=== PATIENT | male | born 1955 | race Caucasian/White ===

== ENCOUNTER → 2017-03-22 | Outpatient (CLI) | payer OTHER ==
--- NOTE | 2017-03-22 17:33 | RADRPT ---
EXAM DATE/TIME: 03/22/2017 16:39 [place] COMPARISON: No previous studies available for comparison. INDICATIONS : Pain. MEDICAL HISTORY : None. SURGICAL HISTORY : Arthroscopy. ENCOUNTER: Initial ACUITY: 3 weeks PAIN SCORE: 4/10 LOCATION: Right knee TECHNIQUE: Multiplanar, multisequence MRI examination was performed without contrast. FINDINGS: CRUCIATE LIGAMENTS: The ACL is not visualized, consistent with chronic tear. The PCL is intact. MENISCI: The lateral meniscus is intact. The medial meniscus is severely deficient, potentially related to lavell or surgical intervention. Small remaining posterior horn portion is notable for an oblique radial tea r. Significant grade 1 signal present in other remaining portions. COLLATERAL LIGAMENTS: MCL and LCL complexes are intact. BONE/CARTILAGE: Severe arthritic change with tricompartmental osteophyte formation. There is mild degenerative subcho ndral signal mainly in the medial compartment bony elements. Severe cartilage loss in the medial comp artment. MISCELLANEOUS: Moderate joint effusion with lobular Belcher's cyst. CONCLUSION: Chronic ACL tear. Severely deficient medial meniscus with degeneration and tear. Severe arthritic changes. Moderate joint effusion and lobular Belcher's cyst Johnny Dia MD on March 22, 2017 at 17:26 Board Certified Radiologist. This report was verified electronically.
== END ==
LOC: HRAD 16:15
PROVIDERS: ATTEND Orthopaedic Surgery
DX: S83.206A Unspecified tear of unspecified meniscus, current injury, right knee, initial encounter (principal); X58.XXXA Exposure to other specified factors, initial encounter
CPT/HCPCS: 73721

== ENCOUNTER → 2017-04-07 | Outpatient (CLI) | payer OTHER ==
[~2017-04-07] MED LIST: ALEV220T14 PO; ESOM1CAP6 PO; GABA300C5 PO
--- NOTE | 2017-04-09 12:25 | EKG ---
Date Performed: 04/07/2017 Time Performed: 11:54:39 PTAGE: 61 years EKG: SINUS BRADYCARDIA BORDERLINE ECG NO PREVIOUS TRACING DOCTOR: Dorys Harris Interpretating Date/Time 04/09/2017 12:24:21
== END ==
LOC: HECH 11:39
PROVIDERS: ATTEND Orthopaedic Surgery
DX: S83.241A Other tear of medial meniscus, current injury, right knee, initial encounter (principal); X58.XXXA Exposure to other specified factors, initial encounter; R00.1 Bradycardia, unspecified
CPT/HCPCS: 93005

== ENCOUNTER → 2017-04-08 | Day surgery (SDC) | payer OTHER ==
[~2017-04-08] VITALS: Ht 188 cm; Wt 107.0 kg
[~2017-04-08] MED LIST changes: +APREPITANT 40 MG CAP ONE; +BUPIVACAINE/EPINEPHRINE 0.5% PF 30 ML VIAL ONE; +CHLORHEXIDINE GLUCONATE 2 % 1 PACK (2 CLOTHS) TOPICAL PRN; +CHLORHEXIDINE GLUCONATE 4% SOLN 120 ML BTL TOPICAL SCH; +DEXAMETHASONE SOD PHOS 4 MG/ML VIAL ONE; +LACTATED RINGER'S 1000 ML IV PRN; +METOPROLOL TARTRATE 25 MG TAB PO PRN; +MIDAZOLAM HCL 2 MG/2 ML VIAL ONE; +MORPHINE SULFATE 4 MG/ML INJ ONE; +ONDANSETRON HCL 4 MG/2 ML VIAL ONE; +POVIDONE IODINE 5% (ANTISEPSIS KIT) 4 APPLICATIONS EACH NARE PRN; +PROMETHAZINE INJ 25 MG/ML VIAL ONE; +SODIUM CHLORID 0.9% 500 ML IV PRN; +TRIAMCINOLONE ACETONIDE 40 MG/ML VIAL ONE
[2017-04-08 13:27] VITALS: PULSE 58
[2017-04-08 17:00] VITALS: BP 121/75; PULSE 56; RESP 14; TEMP 97.7; O2SAT 97
--- NOTE | 2017-04-08 19:36 | MP ---
cc: NANCY VIEIRA M.D. DATE OF SURGERY: 04/08/17 PREOPERATIVE DIAGNOSIS Tear medial meniscus right knee joint. POSTOPERATIVE DIAGNOSIS Tear medial meniscus right knee joint with severe posttraumatic/osteoarthritis knee joint. PROCEDURE Arthroscopic subtotal medial meniscectomy with chondroplasty medial compartment. DETAILS OF PROCEDURE The patient was placed on the operating table in the supine position. Adequate general anesthesia was administered by the anesthesiologist. The patient's right knee was prepped and draped in the usual sterile fashion. An Esmarch bandage was used to exsanguinate the lower extremity and a pneumatic tourniquet was inflated to a pressure of 300 mmHg. A time-out was called and the patient's name, procedure and location were fully confirmed. An anterolateral portal was used for introduction of the inflow cannula system and the joint was distended with lactated Ringer's solution. An anteromedial portal was used for instrumentation and a systematic examination of the joint revealed some grade 1 chondromalacia of the patellofemoral joint with surrounding synovial tissue. The intercondylar fossa revealed obvious old deficiency and tear of the anterior cruciate ligament with only small fibers left and some scar tissue. The posterior cruciate was intact. The medial compartment was entered and there did appear to be a full thickness loss of articular cartilage of the distal femur measuring approximately 2-3 cm in diameter. There were severe degenerative changes of the medial meniscus with multiple complex tearing throughout the substance and loss of a good portion of the posterior horn. A motorized instrument was placed into that compartment and a chondroplasty of the articular surface was performed as well as a subtotal medial meniscectomy back to as much normal tissue as possible. Mild debridement was carried out within the intercondylar fossa, and the lateral compartment also revealed some posttraumatic or degenerative changes and that was shaved as well. The instruments were then removed after a thorough aspiration of all debris. The two stab wounds were closed with simple 3-0 nylon. An intraarticular injection of 10 cc of one-half percent Marcaine with epinephrine along with 1 mL of 40 mg of Kenalog was instilled through the lateral portal. A Xeroform gauze was applied over the wounds followed by application of a bulky dressing. The tourniquet was then deflated after 20 minutes. Sponge count, needle count and instrument counts were reported correct x2. The estimated blood loss was nil. The patient tolerated the procedure well and went to the recovery room in satisfactory condition. MD BRAYDEN Amos/FARTUN /1:28 PM /7:11 PM
== END | disposition home or self-care (01) ==
LOC: PHSDC 09:48
PROVIDERS: ATTEND Orthopaedic Surgery
DX: S83.231A Complex tear of medial meniscus, current injury, right knee, initial encounter (principal); M17.31 Unilateral post-traumatic osteoarthritis, right knee
CPT/HCPCS: 01400; 29881; J1100; J2250; J2270; J2405; J2550; J3301; J7120; J8501